=== PATIENT | female | born 1985 | race Caucasian/White ===

== ENCOUNTER 2016-09-30 13:08 | Emergency (ER) | payer OTHER ==
[~2016-09-30] VITALS: Ht 167.6 cm; Wt 131.5 kg
[2016-09-30 13:43] LABS: GLUCOSE,URINE NEGATIVE (NEG); NITRITE,URINE POSITIVE (NEG); PH,URINE 6.5; PROTEIN,URINE 100 mg/dL (NEG-TRACE)
[2016-09-30] MEDS ORDERED: ONDANSETRON PF 4 MG/2 ML VIAL. IV ONE (13:45)
[2016-09-30] MEDS ORDERED: KETOROLAC TROMETHAMINE 30 MG/ML INJ. IV ONE (13:45)
[2016-09-30] MEDS ORDERED: IV NORMAL SALINE 1000ML BAG 1,000 ML IV ONE (13:45)
--- NOTE | 2016-09-30 13:50 | PHYS DOC ---
Past Medical History Past Medical History: Anxiety, Depression Past Surgical History: Cholecystectomy Alcohol Use: None Drug Use: None Adult General Chief Complaint Chief Complaint: FLANK PAIN HPI HPI Patient is a 31 year old female who presents with an sudden onset left flank pain with radiation to groin. Started yesterday, associated nausea. 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 She noted hematuria yesterday, that is new. She been seen by her doctor for "not feeling well" for a month and was given antiemetics at that time. She also reportedly had some elevated liver enzymes and they're planning to do an outpatient ultrasound. Denies any fevers. Review of Systems Review of Systems Constitutional: Denies fever or chills [] Eyes: Denies change in visual acuity, redness, or eye pain [] HENT: Denies nasal congestion or sore throat [] Respiratory: Denies cough or shortness of breath [] Cardiovascular: Denies chest pain GI: Denies abdominal pain, nausea, vomiting, bloody stools or diarrhea [] : per history of present illness Musculoskeletal: Denies back pain or joint pain [] Integument: Denies rash or skin lesions [] Neurologic: Denies headache, focal weakness or sensory changes [] Current Medications Current Medications Current Medications Medications (Trade) Dose Ordered Sig/Dylan Start Time Stop Time Status Last Admin Dose Admin Ceftriaxone Sodium (Rocephin 1gm Ivpb For Omni) 50 ml @ 100 mls/hr 1X ONCE 09/30/16 15:00 09/30/16 15:29 Ketorolac Tromethamine (Toradol) 30 mg 1X ONCE 09/30/16 13:45 09/30/16 13:47 DC 09/30/16 14:00 30 MG Morphine Sulfate 4 mg 4 mg 1X ONCE 09/30/16 14:30 09/30/16 14:32 DC 09/30/16 14:39 4 MG Ondansetron HCl (Zofran) 4 mg 1X ONCE 09/30/16 13:45 09/30/16 13:47 DC 09/30/16 13:59 4 MG Sodium Chloride (Iv Sodium Chloride 0.9% 1000ml Bag) 1,000 ml @ 1,000 mls/hr 1X ONCE 09/30/16 13:45 09/30/16 14:44 DC 09/30/16 13:59 1,000 MLS/HR Allergies Allergies Allergies Coded Allergies Type Severity Reaction Last Updated Verified sertraline Allergy Severe 09/30/16 Yes Physical Exam Physical Exam Constitutional: Well developed, well nourished, no acute distress, non-toxic appearance. appears to be laying very still HENT: Normocephalic, atraumatic, bilateral external ears normal, oropharynx dry , no oral exudates, nose normal. [] Eyes: PERRLA, EOMI, conjunctiva normal, no discharge. [] Neck: Normal range of motion, no tenderness, supple, no stridor. [] Cardiovascular:Heart rate regular with regular rhythm, no murmur [] Lungs & Thorax: Bilateral breath sounds clear to auscultation [] Abdomen: Bowel sounds normal, soft, no tenderness, no masses, no pulsatile masses. [] Skin: Warm, dry, no erythema, no rash. [] Back: No tenderness, no CVA tenderness. no tenderness to percussion Extremities: No tenderness, no cyanosis, no clubbing, ROM intact, no edema. [] Neurologic: Alert and oriented X 3, normal motor function, normal sensory function, no focal deficits noted. [] Current Patient Data Vital Signs Vital Signs Date Time Temp Pulse Resp B/P Pulse Ox O2 Delivery O2 Flow Rate FiO2 09/30/16 14:39 16 95 Room Air 09/30/16 13:58 88 130/68 09/30/16 13:30 98.2 98.2 Lab Values Laboratory Tests Test 09/30/16 12:27 09/30/16 13:20 09/30/16 13:30 POC Urine HCG, Qualitative Hcg negative (Negative) Urine Collection Type Unknown Urine Color Brown Urine Clarity Turbid Urine pH 6.5 Urine Specific [place] 1.015 Urine Protein 100mg/dL (NEG-TRACE) Urine Glucose (UA) Negativemg/dL (NEG) Urine Ketones (Stick) Negativemg/dL (NEG) Urine Blood Large (NEG) Urine Nitrite Positive (NEG) Urine Bilirubin Negative (NEG) Urine Urobilinogen Dipstick 1.0mg/dL (0.2 mg/dL) Urine Leukocyte Esterase Large (NEG) Urine RBC Tntc/HPF (0-2) Urine WBC Tntc/HPF (0-4) Urine Squamous Epithelial Cells Few/LPF Urine Bacteria Moderate/HPF (0-FEW) Urine Mucus Mod/LPF White Blood Count 16.1x10^3/uL (4.0-11.0) H Red Blood Count 4.16x10^6/uL (3.50-5.40) Hemoglobin 12.7g/dL (12.0-15.5) Hematocrit 36.4% (36.0-47.0) Mean Corpuscular Volume 88fL (79-100) Mean Corpuscular Hemoglobin 30pg (25-35) Mean Corpuscular Hemoglobin Concent 35g/dL (31-37) Red Cell Distribution Width 12.9% (11.5-14.5) Platelet Count 267x10^3/uL (140-400) Neutrophils (%) (Auto) 85% (31-73) H Lymphocytes (%) (Auto) 7% (24-48) L Monocytes (%) (Auto) 7% (0-9) Eosinophils (%) (Auto) 1% (0-3) Basophils (%) (Auto) 0% (0-3) Neutrophils # (Auto) 13.7x10^3uL (1.8-7.7) H Lymphocytes # (Auto) 1.1x10^3/uL (1.0-4.8) Monocytes # (Auto) 1.1x10^3/uL (0.0-1.1) Eosinophils # (Auto) 0.1x10^3/uL (0.0-0.7) Basophils # (Auto) 0.1x10^3/uL (0.0-0.2) Segmented Neutrophils % 78% (35-66) H Band Neutrophils % 11% (0-9) H Lymphocytes % 7% (24-48) L Monocytes % 4% (0-10) Toxic Granulation Slight Platelet Estimate Adequate (ADEQUATE) Sodium Level 137mmol/L (136-145) Potassium Level 3.9mmol/L (3.5-5.1) Chloride Level 103mmol/L (98-107) Carbon Dioxide Level 29mmol/L (21-32) Anion Gap 5 (6-14) L Blood Urea Nitrogen 14mg/dL (7-20) Creatinine 0.8mg/dL (0.6-1.0) Estimated GFR (Cockcroft-Gault) 83.1 Glucose Level 96mg/dL (70-99) Calcium Level 9.0mg/dL (8.5-10.1) Laboratory Tests 09/30/16 13:30 Laboratory Tests 09/30/16 13:30 EKG EKG [] Radiology/Procedures Radiology/Procedures CT abdomen and pelvis: pending at the time care was transferred to Dr. Ranjana Redd Course & Med Decision Making Course & Med Decision Making Pertinent Labs and Imaging studies reviewed. (See chart for details) Patient does not appear significantly uncomfortable. She is given IV Toradol and Zofran, IV fluids, labs and urinalysis performed. Pain returned and IV morphine was given. Patient has significant hematuria with UTI. CT noncontrast was ordered. Patient was given 1 g IV Rocephin. Care transferred to Dr. Redd pending the CT results. Dragon Disclaimer Dragon Disclaimer This electronic medical record was generated, in whole or in part, using a voice recognition dictation system. Departure Departure Impression: Primary Impression: Pyelonephritis Referrals: UNKNOWN PCP NAME (PCP) JORGE ALBERTO URIARTE MD September 30, 2016 13:50
[2016-09-30 13:55] LABS: BASO # 0.1 x10^3/uL (0.0-0.2); BASO % 0 % (0-3); EOS % 1 % (0-3); HEMATOCRIT 36.4 % (36.0-47.0); HEMOGLOBIN 12.7 g/dL (12.0-15.5); LYMPH # 1.1 x10^3/uL (1.0-4.8); LYMPH % 7 % (24-48); MEAN CORPUSCULAR HEMOGLOBIN 30 pg (25-35); MEAN CORPUSCULAR HGB CONC 35 g/dL (31-37); MEAN CORPUSCULAR VOLUME 88 fL (79-100); MONO % 7 % (0-9); NEUT % 85 % (31-73); PLATELET COUNT 267 x10^3/uL (140-400); RED BLOOD COUNT 4.16 x10^6/uL (3.50-5.40); RED CELL DISTRIBUTION WIDTH 12.9 % (11.5-14.5); WHITE BLOOD COUNT 16.1 x10^3/uL (4.0-11.0)
[2016-09-30 13:56] LABS: BILIRUBIN,URINE NEGATIVE (NEG)
[2016-09-30 13:58] LABS: BACTERIA,URINE MODERATE /HPF (0-FEW); RBC,URINE TNTC /HPF (0-2); SQUAMOUS EPITHELIAL CELL,UR FEW /LPF; WBC,URINE TNTC /HPF (0-4)
[2016-09-30 14:07] LABS: CREATININE 0.8 mg/dL (0.6-1.0); GFR 83.1; POTASSIUM 3.9 mmol/L (3.5-5.1)
[2016-09-30] MEDS ORDERED: MORPHINE SULFATE 4 MG/ML DISP.SYRIN. IV ONE (14:30)
[2016-09-30 15:00] LABS: PLT ESTIMATE ADEQUATE (ADEQUATE)
[2016-09-30 15:01] LABS: TOXIC GRANULATION SLIGHT
--- NOTE | 2016-09-30 15:49 | RAD ---
Indication bilateral, predominantly right-sided flank pain. Axial images were obtained through the abdomen and pelvis. The examination was tailored for the detection of renal and/or ureteral calculi. No IV or gastrointestinal contrast was administered. No prior CT imaging is available. The lung bases are clear. The liver and spleen appear unremarkable. Clips are noted in the gallbladder fossa. No pancreatic abnormality is seen. There are no adrenal anomalies. No calculi are seen on either side. There is slight indistinctness of the right kidney and some mild fullness in the pelvis. There may be slight periureteral stranding along the course of the ureter. No obstructing calculus is seen. Clinical correlation as to the possibility of underlying infection advised. The left kidney collecting system and ureter appear unremarkable. An additional finding in the abdomen is not seen. There is a 4.5 cm low-density mass in the left adnexa which may represent a dominant cyst associated with the ovary. There is some fullness associated with the right fundus of the uterus. This may represent ovary or a fibroid. Clinical correlation advised. If additional imaging evaluation warranted in the pelvis ultrasound could be performed. IMPRESSION: No evidence of renal calculi or significant obstructive uropathy on either side. Findings associated with the right kidney/ureter suggesting possible underlying infection. Clinical correlation advised PQRS Compliance Statement: One or more of the following individualized dose reduction techniques were utilized for this examination: 1. Automated exposure control 2. Adjustment of the mA and/or kV according to patient size 3. Use of iterative reconstruction technique
[2016-09-30] MEDS ORDERED: MORPHINE SULFATE 10 MG/ML VIAL. IV ONE (16:15)
[2016-09-30 16:28] VITALS: BP 131/77
[2016-09-30] MEDS ORDERED: HYDR-2666 PO (16:39)
[2016-09-30] MEDS ORDERED: ONDA4TAB10 SL (16:39)
[2016-09-30] MEDS ORDERED: LEVO500T8 PO (16:39)
== END 2016-09-30 16:53 | disposition home or self-care (01) ==
LOC: ER 13:08
DX: N12 Tubulo-interstitial nephritis, not specified as acute or chronic (principal); Z90.49 Acquired absence of other specified parts of digestive tract; Z88.8 Allergy status to other drugs, medicaments and biological substances
CPT/HCPCS: 36415; 74176; 80048; 81001; 81025; 85007; 85027; 87086; 96361; 96365; 96375; 96376; 99285; J0690; J1885; J2270; J2405; J7030; 87186

== ENCOUNTER 2017-04-19 08:57 | Emergency (ER) | payer OTHER ==
[~2017-04-19] VITALS: Ht 167.6 cm; Wt 117.9 kg
[2017-04-19 08:57] VITALS: BP 138/94
[~2017-04-19 08:57] MED LIST: ALPR0.5T PO; ALPR1TAB2 PO; CHOL10003 PO; CYAN100072 PO; FLUO20CA16 PO; HYDR-2758 PO; LEVO500T8 PO; ONDA4TAB10 SL
[2017-04-19 10:24] LABS: BILIRUBIN,URINE NEGATIVE (NEG); GLUCOSE,URINE NEGATIVE (NEG); NITRITE,URINE NEGATIVE (NEG); PROTEIN,URINE NEGATIVE (NEG-TRACE)
[2017-04-19 10:29] LABS: BARBITURATES NEG (NEG); BENZODIAZEPINES NEG (NEG); CANNABINOIDS NEG (NEG); COCAINE NEG (NEG); METHADONE NEG (NEG); OPIATES NEG (NEG); PHENCYCLIDINE NEG (NEG)
[2017-04-19 10:44] LABS: BACTERIA,URINE 0 /HPF (0-FEW); RBC,URINE 0 /HPF (0-2); SQUAMOUS EPITHELIAL CELL,UR MOD /LPF; WBC,URINE 0 /HPF (0-4)
--- NOTE | 2017-04-19 17:31 | ED.ADGEN ---
Past Medical History Past Medical History: Anxiety, Depression, Other Additional Past Medical Histor: OCD Past Surgical History: Cholecystectomy Alcohol Use: None Drug Use: None Adult General Chief Complaint Chief Complaint: PSYCH EVALUATION HPI HPI Patient is a 31 year old woman, history of depression and anxiety, who presents the emergency department via EMS with a complaint of depression. Patient is denying suicidal ideation or self injures behaviors. She denies any homicidal ideation, any auditory or visual hallucinations, she has a remote history of a suicide attempt, with laceration to her wrist. She currently is taking Prozac but states due to medication issues, she is currently beginning less of the dose that she is mostly prescribed, and does have an appointment to follow-up with her physician on Thursday. 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 Patient states there has been significant stress due to the fact that the patient's father is currently in the hospital, and that the patient's mother relies on her for all care along with other social factors. Patient states that she would like to speak with the psychiatric assessment team regarding options, she has previously been evaluated and treated, and was recently hospitalized at [facility], released with her current medication regimen, for Prozac and clonazepam. Patient is declining all physical complaints. She is, cooperative this time in the emergency department, although she is tearful during her conversation. Review of Systems Review of Systems Constitutional: Denies fever or chills. [] Eyes: Denies change in visual acuity. [] HENT: Denies nasal congestion or sore throat. [] Respiratory: Denies cough or shortness of breath. [] Cardiovascular: Denies chest pain or edema. [] GI: Denies abdominal pain, nausea, vomiting, bloody stools or diarrhea. [] : Denies dysuria. [] Musculoskeletal: Denies back pain or joint pain. [] Integument: Denies rash. [] Neurologic: Denies headache, focal weakness or sensory changes. [] Endocrine: Denies polyuria or polydipsia. [] Lymphatic: Denies swollen glands. [] Psychiatric: Complaining of a depression and anxiety. Allergies Allergies Allergies Coded Allergies Type Severity Reaction Last Updated Verified sertraline Allergy Severe 09/30/16 Yes Physical Exam Physical Exam Constitutional: Well developed, well nourished, no acute distress, non-toxic appearance. [] HENT: Normocephalic, atraumatic, bilateral external ears normal, oropharynx moist, no oral exudates, nose normal. [] Eyes: PERRLA, EOMI, conjunctiva normal, no discharge. [] Neck: Normal range of motion, no tenderness, supple, no stridor. [] Cardiovascular:Heart rate regular rhythm, no murmur, S1, S2, no rubs or gallops. [] Lungs & Thorax: Bilateral breath sounds clear to auscultation, no wheezing, rhonchi, rales. No chest wall crepitus or tenderness. [] Abdomen: Bowel sounds normal, soft, no tenderness, no masses, no pulsatile masses. [] Skin: Warm, dry, no erythema, no rash. [] Back: No tenderness, no CVA tenderness. [] Extremities: No tenderness, no cyanosis, no clubbing, ROM intact, no edema. Negative Homans sign.[] Neurologic: Alert and oriented X 3, normal motor function, normal sensory function, no focal deficits noted. [] Psychologic: Affect normal, judgement normal, mood normal. [] Current Patient Data Vital Signs Vital Signs Date Time Temp Pulse Resp B/P (MAP) Pulse Ox O2 Delivery O2 Flow Rate FiO2 04/19/17 08:57 98.5 75 24 138/94 (109) 99 Room Air 98.5 Lab Values Laboratory Tests Test 04/19/17 09:50 04/19/17 09:53 Urine Collection Type Void Urine Color Yellow Urine Clarity Clear Urine pH 7.0 Urine Specific [place] 1.025 Urine Protein Negative mg/dL (NEG-TRACE) Urine Glucose (UA) Negative mg/dL (NEG) Urine Ketones (Stick) >=80 mg/dL (NEG) Urine Blood Negative (NEG) Urine Nitrite Negative (NEG) Urine Bilirubin Negative (NEG) Urine Urobilinogen Dipstick 1.0 mg/dL (0.2 mg/dL) Urine Leukocyte Esterase Negative (NEG) Urine RBC 0 /HPF (0-2) Urine WBC 0 /HPF (0-4) Urine Squamous Epithelial Cells Mod /LPF Urine Bacteria 0 /HPF (0-FEW) Urine Mucus Mod /LPF Urine Opiates Screen Neg (NEG) Urine Methadone Screen Neg (NEG) Urine Barbiturates Neg (NEG) Urine Phencyclidine Screen Neg (NEG) Urine Amphetamine/Methamphetamine Neg (NEG) Urine Benzodiazepines Screen Neg (NEG) Urine Cocaine Screen Neg (NEG) Urine Cannabinoids Screen Neg (NEG) Urine Ethyl Alcohol Neg (NEG) POC Urine HCG, Qualitative Hcg negative (Negative) EKG EKG Not indicated. Radiology/Procedures Radiology/Procedures Not indicated.[] Course & Med Decision Making Course & Med Decision Making Pertinent Labs and Imaging studies reviewed. (See chart for details) Patient without any suicidal or homicidal ideations, but no evidence of auditory hallucinations, is tearful during conversation is appropriate. She denies any ingestions or other self injures type behaviors, and has vital signs within normal limits. As stated, patient is familiar with the mental health system in [place], and does have a mental health care provider with whom she does have an appointment to follow-up with next week. She is agreeable to speaking with Eun, the psychiatric assessment count team clerk who is on-call today , who was contacted and did come to the ED to evaluate the patient. There are no physical complaints of the patient has, no concerning findings identified and physical examination. Patient's urinalysis and her UDS are negative, her hCG is also negative. After discussion, Eun and patient are agreeable with plan to construct a safety contract plan. As stated, patient is not voicing any concerning thoughts or behaviors, is calm, cooperative, and appropriate in her responses and Eun, myself and the patient all agree that the patient is appropriate to be discharged home, to follow-up with her mental health provider , and states that she will return to the ED if she again feels overwhelmed or for any new or concerning symptoms develop. Patient discharged home in stable condition with [facility] for right home without issue. Dragon Disclaimer Dragon Disclaimer This electronic medical record was generated, in whole or in part, using a voice recognition dictation system. Departure Impression: Primary Impression: Depression Additional Impression: Anxiety Disposition: 01 HOME, SELF-CARE Condition: IMPROVED Problem Qualifiers LILIAN CONN DO Apr 19, 2017 17:31
== END 2017-04-19 11:46 | disposition home or self-care (01) ==
LOC: ER 08:57
DX: F32.9 Major depressive disorder, single episode, unspecified (principal); F41.9 Anxiety disorder, unspecified; F42.9 Obsessive-compulsive disorder, unspecified; Z88.8 Allergy status to other drugs, medicaments and biological substances
CPT/HCPCS: 80307; 81001; 81025; 99284; G0479